=== PATIENT | female | born 1960 | race Caucasian/White ===

== ENCOUNTER → 2024-08-12 09:53 | Outpatient (REF) | payer MEDICARE, SELFPAY | LOC: RAD 09:53 | PROVIDERS: ATTENDING PHYSICIAN Family Medicine; PRIMARYCARE PHYSICIAN Internal Medicine Clinical Cardiac Electrophysiology | DX: R06.09 Other forms of dyspnea (principal) | CPT/HCPCS: 75574; Q9967 ==